=== PATIENT | male | born 1965 | race Caucasian/White ===

== ENCOUNTER 2019-03-30 09:52 | Day surgery (SDC) | payer OTHER ==
[~2019-03-30] VITALS: Ht 190.5 cm; Wt 101.8 kg
[2019-03-30 10:21] VITALS: Ht 190.5 cm; Wt 101.8 kg
[2019-03-30 10:33] VITALS: BP 142/87; PULSE 70; RESP 16
[2019-03-30] MEDS ORDERED: LOMOTIL (10:33)
[2019-03-30] MEDS ORDERED: IMODIUM (10:33)
[2019-03-30] MEDS ORDERED: ANTIVIRALS (10:33)
--- NOTE | 2019-03-30 12:00 | PREAC ---
Date/Time of Note Date/Time of Note DATE: 03/30/19 TIME: 11:59 Anesthesia Eval and Record Evaluation Time Pre-Procedure Interview DATE: 03/30/19 TIME: 11:59 Age 53 Sex male NPO: 8 hrs Preoperative diagnosis screening Planned procedure colonoscopy Past Medical History Past Medical History: Includes Infection(s): HIV Surgery & Anesthesia Issues No known issue Meds Anticoagulation: No Beta Dustin within 24 hr: No Reason Beta Dustin not given: Pt. not on B-Dustin Reported Medications [Imodium] No Conflict Check 03/30/19 [Lomotil] No Conflict Check 03/30/19 [Antivirals] No Conflict Check 03/30/19 Meds reviewed: Yes Allergies Coded Allergies: No Known Allergy (Unverified , 03/30/19) Allergies Reviewed: Yes Labs/Studies Labs Reviewed: Reviewed by anesthesiologist test: N/A Studies: ECG Pre-procedure Exam Last vitals Vital Signs Date Temp Pulse Resp B/P (MAP) Pulse Ox O2 O2 Flow FiO2 Time Delivery Rate 03/30/19 97.8 70 16 142/87 99 Room Air 10:33 (105) Airway: Adequate mouth opening, Adequate thyromental dist Mallampati: Mallampati II Teeth: Normal Lung: Normal Heart: Normal ASA Physical Status ASA physical status: 3 Emergency: None Planned Anesthetic General/MAC: Mask, MAC Pre-operative Attestations Prior to commencing anesthesia and surgery, the patient was re-evaluated, there was verification of: *The patient's identity *The results of appropriate recent lab work and preoperative vital signs *The above evaluation not changing prior to induction *Anesthetic plan, risk benefits, alternative and complications discussed with patient/family; questions answered; patient/family understands, accepts and wishes to proceed. ENMA HARDWICK Mar 30, 2019 12:00
[2019-03-30 13:06] VITALS: BP 133/85; PULSE 62; RESP 18
--- NOTE | 2019-03-31 08:03 | PAC ---
Date/Time of Note Date/Time of Note DATE: 03/31/19 TIME: 08:03 Post-Anesthesia Notes Post-Anesthesia Note Last documented vital signs Vital Signs Date Temp Pulse Resp B/P (MAP) Pulse Ox O2 O2 Flow FiO2 Time Delivery Rate 03/30/19 62 18 133/85 99 Room Air 13:06 (101) 03/30/19 97.8 10:33 Activity: WNL Respiratory function: WNL Cardiovascular function: WNL Mental status: Baseline Pain reasonably controlled: Yes Hydration appropriate: Yes Nausea/Vomiting absent: Yes ENMA HARDWICK Mar 31, 2019 08:03
== END 2019-03-30 13:36 | disposition home or self-care (01) ==
LOC: GIL 09:52
PROVIDERS: ATTEND Internal Medicine Gastroenterology
DX: Z12.11 Encounter for screening for malignant neoplasm of colon (principal); K64.8 Other hemorrhoids
CPT/HCPCS: 45378; 88305; Z7610